=== PATIENT | male | born 1940 | race Caucasian/White ===

== ENCOUNTER 2018-05-13 14:37 | Emergency (ER) | payer MEDICARE ==
[~2018-05-13] VITALS: Ht 185.4 cm; Wt 104.3 kg
[~2018-05-13 14:37] MED LIST: ASPI81EC; ATOR10; CIPR500 PO
[2018-05-13] MEDS ORDERED: Carvedilol12.5 MG PO (14:47)
[2018-05-13] MEDS ORDERED: LEVSOD50 PO (14:47)
[2018-05-13] MEDS ORDERED: ATOR20 PO (14:47)
[2018-05-13] MEDS ORDERED: Efudex40 GM (14:47)
[2018-05-13] MEDS ORDERED: WARF5 PO (14:48)
[2018-05-13] MEDS ORDERED: METPRE4DP PO (16:23)
== END 2018-05-13 16:31 | disposition home or self-care (01) ==
LOC: ER 14:37
DX: T63.461A Toxic effect of venom of wasps, accidental (unintentional), initial encounter (principal); T63.441A Toxic effect of venom of bees, accidental (unintentional), initial encounter; Z88.0 Allergy status to penicillin; Z79.899 Other long term (current) drug therapy; Z79.82 Long term (current) use of aspirin; Z79.01 Long term (current) use of anticoagulants; Z87.891 Personal history of nicotine dependence
CPT/HCPCS: 96374; 96375; 99282-25; J1200; J2930